=== PATIENT | female | born 1960 | race Caucasian/White ===

== ENCOUNTER 2016-06-23 01:50 | Emergency (ER) | payer OTHER ==
[~2016-06-23] VITALS: Ht 167.6 cm; Wt 127.2 kg
[~2016-06-23 01:50] MED LIST: AMOXICILLIN500 M1 PO; ASCORBIC ACID100 MG PO; DAILY VALUE1 EACH PO; FISH OIL300 MG PO; INDOCIN50 MG PO; MOBIC7.5 MG PO; NAPROSYN500 MG PO; OMEPRAZOLE20 M2 PO; PROZAC10 MG PO; PROZAC20 MG PO; REGLAN10 MG PO; TRAMADOL HCL50 MG PO; TREXALL5 MG PO; TREXIMET 85-1 TABLET PO; TYLENOL WITH C1 EACH PO; ULTRACET1 TABLET PO
[2016-06-23 04:29] VITALS: BP 122/92
== END 2016-06-23 04:31 | disposition home or self-care (01) ==
LOC: EME 01:50 → EDBD 01:50 → EME 04:31
DX: S80.02XA Contusion of left knee, initial encounter (principal); W18.30XA Fall on same level, unspecified, initial encounter; F17.200 Nicotine dependence, unspecified, uncomplicated
CPT/HCPCS: 73564; 99281; 99283

== ENCOUNTER 2017-02-24 05:05 | Emergency (ER) | payer OTHER ==
[~2017-02-24] VITALS: Ht 167.6 cm; Wt 105.4 kg
[2017-02-24] MEDS ORDERED: PREDNISONE50 MG PO (06:27)
[2017-02-24 06:36] VITALS: BP 157/101
== END 2017-02-24 06:39 | disposition home or self-care (01) ==
LOC: EME 05:05
DX: R21 Rash and other nonspecific skin eruption (principal); W57.XXXA Bitten or stung by nonvenomous insect and other nonvenomous arthropods, initial encounter; F32.9 Major depressive disorder, single episode, unspecified; F17.200 Nicotine dependence, unspecified, uncomplicated
CPT/HCPCS: 99281; 99282; J7512

== ENCOUNTER 2017-07-29 01:08 | Emergency (ER) | payer OTHER ==
[~2017-07-29] VITALS: Ht 167.6 cm; Wt 98.6 kg
[~2017-07-29 01:08] MED LIST changes: +PREDNISONE50 MG PO
[2017-07-29 02:46] VITALS: BP 132/92
== END 2017-07-29 02:46 | disposition home or self-care (01) ==
LOC: EME 01:08
DX: S61.012A Laceration without foreign body of left thumb without damage to nail, initial encounter (principal); W26.0XXA Contact with knife, initial encounter; Z23 Encounter for immunization; F42.9 Obsessive-compulsive disorder, unspecified
CPT/HCPCS: 99281; 99284

== ENCOUNTER 2017-09-28 23:32 | Emergency (ER) | payer OTHER ==
[~2017-09-28] VITALS: Ht 170.2 cm; Wt 97.4 kg
[2017-09-29] MEDS ORDERED: NAPROSYN500 MG PO (02:50)
[2017-09-29] MEDS ORDERED: NORCO 10/3251 TABLET PO (02:50)
[2017-09-29 03:15] VITALS: BP 145/98
== END 2017-09-29 03:20 | disposition home or self-care (01) ==
LOC: EME 23:32
DX: M23.91 Unspecified internal derangement of right knee (principal); M17.11 Unilateral primary osteoarthritis, right knee; M25.511 Pain in right shoulder; W01.0XXA Fall on same level from slipping, tripping and stumbling without subsequent striking against object, initial encounter; Y99.0 Civilian activity done for income or pay; F42.9 Obsessive-compulsive disorder, unspecified
CPT/HCPCS: 73564; 99281; 99284